=== PATIENT | female | born 1960 | race Caucasian/White ===

== ENCOUNTER 2020-07-14 11:01 | Outpatient (CLI) | payer OTHER ==
--- NOTE | 2020-07-29 16:53 | MMO ---
Bilateral MAMMO Bilat Screen [facility]. CLINICAL HISTORY: Patient is 60 years old and is seen for screening. The patient has no family history of breast cancer. The patient has no personal history of cancer. VIEWS: The views performed were: bilateral craniocaudal with tomosynthesis and bilateral mediolateral oblique with tomosynthesis. FILMS COMPARED: The present examination has been compared to prior imaging studies performed at [facility] on 04/01/2014, 04/07/2015, 04/17/2016 and 04/27/2017. This study has been interpreted with the assistance of computer-aided detection. MAMMOGRAM FINDINGS: There are scattered fibroglandular densities. There are no suspicious masses, suspicious calcifications, or new areas of architectural distortion. IMPRESSION: THERE IS NO MAMMOGRAPHIC EVIDENCE OF MALIGNANCY. A ROUTINE FOLLOW-UP MAMMOGRAM IN 1 YEAR IS RECOMMENDED. THE RESULTS OF THIS EXAM WERE SENT TO THE PATIENT. ACR BI-RADS Category 1 - Negative MAMMOGRAPHY NOTE: 1. A negative mammogram report should not delay a biopsy if a dominant of clinically suspicious mass is present. 2. Approximately 10% to 15% of breast cancers are not detected by mammography. 3. Adenosis and dense breasts may obscure an underlying neoplasm. Reported by: MICHELLE PARIS MD Electonically Signed: [id number]
== END 2020-07-14 11:02 | disposition home or self-care (01) ==
LOC: BICMAMMO 11:01
PROVIDERS: ATTEND Family Medicine
DX: Z12.31 Encounter for screening mammogram for malignant neoplasm of breast (principal)
CPT/HCPCS: 77063; 77067

== ENCOUNTER 2022-04-19 11:02 | Outpatient (CLI) | payer BC | END 2022-04-19 11:03 | disposition home or self-care (01) | LOC: BICRAD 11:02 | PROVIDERS: ATTEND Family Medicine | DX: M47.26 Other spondylosis with radiculopathy, lumbar region (principal) | CPT/HCPCS: 72100 ==

== ENCOUNTER 2022-05-04 10:58 | Outpatient (CLI) | payer BC | END 2022-05-04 10:59 | disposition home or self-care (01) | LOC: BICMRI 10:58 | PROVIDERS: ATTEND Family Medicine | DX: Z12.31 Encounter for screening mammogram for malignant neoplasm of breast (principal); M47.26 Other spondylosis with radiculopathy, lumbar region; N28.9 Disorder of kidney and ureter, unspecified | CPT/HCPCS: 72148; 77063; 77067 ==

== ENCOUNTER 2022-05-12 15:21 | Outpatient (CLI) | payer BC | END 2022-05-12 15:22 | disposition home or self-care (01) | LOC: BICULT 15:21 | PROVIDERS: ATTEND Family Medicine | DX: N28.89 Other specified disorders of kidney and ureter (principal) | CPT/HCPCS: 76770 ==

== ENCOUNTER 2022-06-20 09:27 | Outpatient (CLI) | payer BC | END 2022-06-20 09:28 | disposition home or self-care (01) | LOC: BICCT 09:27 | PROVIDERS: ATTEND Urology | DX: N28.89 Other specified disorders of kidney and ureter (principal) | CPT/HCPCS: 74178; 82565 ==

== ENCOUNTER 2023-06-26 11:01 | Outpatient (CLI) | payer BC | END 2023-06-26 11:02 | disposition home or self-care (01) | LOC: BICMAMMO 11:01 | PROVIDERS: ATTEND Family Medicine | DX: Z12.31 Encounter for screening mammogram for malignant neoplasm of breast (principal) | CPT/HCPCS: 77063; 77067 ==

== ENCOUNTER 2023-07-11 10:26 | Outpatient (CLI) | payer BC, OTHER ==
[2023-07-11] MEDS ORDERED: Iopamidol 370 76% 100 ML VIAL ONE (12:22)
== END 2023-07-11 10:27 | disposition home or self-care (01) ==
LOC: BICCT 10:26
PROVIDERS: ATTEND Urology
DX: N28.89 Other specified disorders of kidney and ureter (principal); N28.1 Cyst of kidney, acquired; K42.9 Umbilical hernia without obstruction or gangrene
CPT/HCPCS: 74178; 82565; Q9967

== ENCOUNTER 2023-10-08 18:20 | Emergency (ER) | payer BC ==
[2023-10-08] MEDS ORDERED: Fluorescein Opthalmic Strip ONE (23:22)
[2023-10-08] MEDS ORDERED: Proparacaine 0.5% Opth 15 ML BOT ONE (23:22)
== END 2023-10-09 00:38 | disposition home or self-care (01) ==
LOC: ERS 18:20
DX: H11.31 Conjunctival hemorrhage, right eye (principal)
CPT/HCPCS: 99283